=== PATIENT | female | born 1950 | race African-American/Black ===

== ENCOUNTER → 2016-09-29 | Outpatient (CLI) | payer OTHER ==
[~2016-09-29] VITALS: Ht 170.2 cm; Wt 86.2 kg
[~2016-09-29] MED LIST: LISINOPRIL-HCT1 EAC2 PO
--- NOTE | ~2016-09-29 | S ---
[facility] [place] [address] SURGICAL PATH RPT PROCEDURE Name: SUZIE KRISHNAMURTHY Room #: REG CL Devi.#: [id number] Admission: 09/29/16 Date of : 50 Discharge: Report #: [id number] Path Case #: [id number] PATHOLOGY REPORT COLLECTION DATE: 09/29/2016 RECEIVED DATE: 09/30/2016 SUBMITTING PHYS: Dr. Chapin King OTHER PHYS: Dr. Kevin Claros SPECIMEN(S) RECEIVED: A.Bx at 47 cm B.Random colon bx C.Colon polyp at 35 cm * * * * * * * * * * * * FINAL DIAGNOSIS: A. Colon, "47 cm at previous polyp site," biopsy: - Colonic mucosa with mild chronic inflammation and focal mild glandular architectural distortion. - No evidence of adenomatous mucosa or carcinoma. B. Colon, random biopsy: - Colonic mucosa with mild chronic inflammation and mild glandular architectural distortion. - No evidence of adenomatous mucosa or carcinoma. C. Colon, 35 cm, biopsy: - Hyperplastic polyp. (PERLA:; d/t: 10/03/16) PATHOLOGIST: Sky Wilkinson M.D. REPORT ELECTRONICALLY SIGNED BY: Sky Wilkinson M.D. DATE/TIME: 10/03/2016 13:50 * * * * * * * * * * * * GROSS PATHOLOGY: A. Received in formalin labeled "Suzie Krishnamurthy, BX at 47 cm at previous polyp site," are 10 segments of ye soft tissue measuring 2.8 x 0.2 x 0.2 cm in aggregate dimensions and ranging from 0.1 to 0.8 cm in maximum dimension. The specimen is submitted entirely in cassette A1. B. Received in formalin labeled "Suzie Krishnamurthy, random colon BX," are 9 segments of ye soft tissue measuring 3.3 x 0.2 x 0.2 cm in aggregate dimensions and ranging from 0.1 to 0.7 cm in maximum dimension. The specimen is submitted entirely in cassette B1. C. Received in formalin labeled "Suzie Krishnamurthy, colon polyp at 35 cm," is a segment of ye soft tissue measuring 0.5 x 0.2 x 0.2 cm in maximum dimension. The specimen is submitted entirely in cassette C1. 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 [facility] [address] [address] PHONE: [phone] DIRECTOR: Alexis Moncada M.D. * * * END OF REPORT * * *
--- NOTE | ~2016-09-29 | P ---
[facility] [place] [address] PROCEDURE REPORT Name: CLAUDIA GILLIAM Room #: REG [facility]#: [id number] Admission: 09/29/16 Attend Phys: Chapin King MD Discharge: Date of : 50 Report #: [id number] THIS REPORT FOR: //name// CC: Kevin King PREOPERATIVE DIAGNOSES: History of polyp at 40 cm with high grade dysplasia and question of invasive carcinoma. Flexible sigmoidoscopy today to evaluate polypectomy site. History of highly dysplastic colon polyps. POSTOPERATIVE DIAGNOSES: 1. Diminutive polyp at 35 cm. 2. Moderately severe diverticulosis coli. 3. Old polypectomy site with tattoo raines at 40 cm. ESTIMATED BLOOD LOSS: 3 mL. SPECIMENS: 1. Biopsy of old polyp site at 40 cm. 2. Diminutive polyp at 35 cm. 3. Random rectosigmoid biopsies. PROCEDURE: Flexible sigmoidoscopy with biopsy. FINDINGS: Prior to propofol sedation, procedure of flexible sigmoidoscopy was discussed with the patient as well as potential risks and its complications. She indicates she understands and desires to proceed. DESCRIPTION OF PROCEDURE: With the patient in left lateral decubitus position, digital examination was completed which revealed no abnormalities. Subsequently, the Companion Canine video colonoscope was introduced into the rectum, advanced under direct vision to about 40 cm. At that point, tattoo raines were seen. The prep was adequate for today's purposes. There was some stool material in the area. We were able to irrigate and suction and obtain a good prep and good inspection of the polypectomy site. Once again, there was an area that appeared to be a redundant fold or possibly an old polyp stalk. No obvious polyp tissue was seen. However, multiple biopsies were obtained. Two tattoo raines were seen in this vicinity. The surrounding mucosa in the area was normal and no additional polyps were seen at the immediate site, but just distal to that at about 35 cm, a diminutive polyp seen and removed by biopsy. As we withdrew the scope, she was noted to have moderately severe diverticular disease without endoscopic evidence of diverticulitis. The patient also reported increased stool frequency since her . The patient also noted increased stool frequency. I did not see inflammatory changes today. Multiple biopsies were obtained of the mucosa to evaluate for microscopic inflammatory changes. Scope was withdrawn in the rectum and on retroflexion, no additional [facility] [address] [place] [address] PROCEDURE REPORT Name: CLAUDIA GILLIAM Room #: REG GEOFF Barrett#: [id number] Admission: 09/29/16 Attend Phys: Chapin King MD Discharge: Date of : 50 Report #: [id number] abnormalities were seen. Scope was withdrawn. The patient tolerated the procedure well. CONDITION OF THE PATIENT UPON DISCHARGE: Following procedure, the patient is drowsy and will be discharged home when fully ambulatory. INSTRUCTIONS TO THE PATIENT AND FAMILY AT THE TIME OF DISCHARGE: The polyp site looks benign. Biopsies were obtained. We will follow up on biopsies and make further recommendations with regards to surveillance. She does describe some increased stool frequency. I do not see obvious inflammatory changes and biopsies were obtained to evaluate for microscopic inflammatory changes. At this point in time, I suggest a high fiber diet for her loose stool. She will otherwise follow up with Dr. Kevin Claros. <ELECTRONICALLY SIGNED> By: Chapin King MD 10/04/16 1742 [id number] Chapin King MD /nt
== END ==
LOC: GI 09-22 08:18
DX: K63.5 Polyp of colon (principal); K52.89 Other specified noninfective gastroenteritis and colitis; K57.30 Diverticulosis of large intestine without perforation or abscess without bleeding; F17.210 Nicotine dependence, cigarettes, uncomplicated; F32.89 Other specified depressive episodes; Z90.710 Acquired absence of both cervix and uterus; I10 Essential (primary) hypertension
CPT/HCPCS: 62110; 62900